=== PATIENT | male | born 1955 | race Caucasian/White ===

== ENCOUNTER 2017-02-04 13:53 | Emergency (ER) | payer OTHER ==
[~2017-02-04] VITALS: Ht 167.6 cm; Wt 83.3 kg
[2017-02-04 14:02] VITALS: TEMP 36.7; Ht 167.6 cm; Wt 83.3 kg
--- NOTE | 2017-02-04 14:33 | DIAGNOSTIC IMAGING REPORT ---
RIGHT WRIST 5 VIEWS HISTORY: R wrist pain Right COMPARISON: None. FINDINGS: Nondisplaced radial styloid fracture. The scaphoid appears intact. Old nonunited fracture at the ulnar styloid. Radial soft tissue swelling. No radiopaque foreign bodies. IMPRESSION: Acute nondisplaced radial styloid fracture. Electronically signed by: Bartolo Powers M.D. 02/04/2017 2:32 PM Dictated Date/Time: 02/04/2017 2:30 PM
--- NOTE | 2017-02-04 14:43 | EMERGENCY ROOM VISIT NOTE ---
History First contact with patient: 14:04 Chief Complaint: WRIST PAIN Stated Complaint: SPRAINED RIGHT WRIST-WORK RELATED INJURY History of Present Illness The patient is a 61 year old male who presents to the Emergency Room with complaints of right wrist pain after he slipped and fell at work this morning. The patient was inspecting a grate, and reports that the slipped on a wet deck and fell forward. He tried to catch his fall with his right upper extremity. He does not recall if he flexed or hyperextended the wrist. He complains of pain along the radial aspect. He denies any pain extending into the hand or forearm. The patient is [id number], and rates his discomfort a 2 out of 10. The patient denies any prior history of right wrist injuries. Review of Systems 10 system review was performed and was negative except for pertinent positives and negatives as indicated in history of present illness Past Medical/Surgical History Medical Problems: (1) Herpes Zoster Nos (2) No significant past surgical history Surgical Problems: (1) S/P herniorrhaphy Family History FH: heart disease Social History Smoking Status: Never Smoker Alcohol Use: none Marital Status: single Housing Status: lives alone Occupation Status: employed Current/Historical Medications No Active Prescriptions or Reported Meds Physical Exam Vital Signs Date Time Temp Pulse Resp B/P (MAP) Pulse Ox O2 Delivery O2 Flow Rate FiO2 02/04/17 14:02 36.7 69 20 158/100 100 Room Air Physical Exam CONSTITUTIONAL: Healthy and well nourished. Alert and oriented X 3 with positive affect. Patient does not appear in any acute distress. HEENT: Normocephalic, atraumatic. Pupils equal, round and reactive. NECK: Full active range of motion without discomfort. MUSCULOSKELETAL: Examination of the right upper extremity does not show any soft tissue edema, ecchymosis, open wounds or deformity. The patient has mild tenderness over the right distal radius region with negative anatomic snuffbox tenderness. No focal tenderness over the distal ulna or ulnar styloid. No worsening pain with pronation or supination. No focal tenderness to palpation through the metacarpals, phalanges or elbow region. Capillary refill is less than 2 seconds. INTEGUMENTARY: No rash or other significant dermatologic conditions noted. NEUROLOGIC: Right hand and fingers are sensory intact. Medical Decision & Procedures ER Provider Diagnostic Interpretation: My interpretation of right wrist x-rays confirms a nondisplaced intra-articular distal radius/radial styloid fracture. Radiologist report is as follows: RIGHT WRIST 5 VIEWS HISTORY: R wrist pain Right COMPARISON: None. FINDINGS: Nondisplaced radial styloid fracture. The scaphoid appears intact. Old nonunited fracture at the ulnar styloid. Radial soft tissue swelling. No radiopaque foreign bodies. IMPRESSION: Acute nondisplaced radial styloid fracture. ED Course Patient history and physical exam were performed. Nurse's notes were reviewed. Vital signs were reviewed, showing an elevated blood pressure 158/100. The patient refused any analgesics. Denies pack was applied. Right wrist x-rays confirms a radial styloid fracture. A volar Ortho-Glass splint was applied. Neurovascular check after splint placement was normal. The patient was encouraged to ice and elevate the wrist for swelling and pain. Ibuprofen or Tylenol if needed for additional pain relief. The patient was instructed to follow-up with his Worker's Compensation approved orthopedic surgeon for further reevaluation and management. The patient was happy with plan of care, voiced understanding of all discharge instructions, and denied any significant pain at the time of discharge. The patient was also instructed to follow-up with his PCP for blood pressure recheck as his pressure was elevated in the emergency department. Medical Decision Blood Pressure Screening Patient's blood pressure: Elevated blood pressure Blood pressure disposition: Referred to PCP Impression Primary Impression: Nondisplaced fracture of right radial styloid process, initial encounter for closed fracture Additional Impressions: Work related injury Elevated blood pressure reading Fall from slipping on slippery surface Departure Information Prescriptions No Active Prescriptions or Reported Meds Referrals Mark Cho, DDeniseODenise (PCP) Patient Instructions [facility] Problem Qualifiers Additional Impressions: Fall from slipping on slippery surface Encounter type: initial encounter Qualified Codes: W01.0XXA - Fall on same level from slipping, tripping and stumbling without subsequent striking against object, initial encounter
[2017-02-04 15:12] VITALS: BP 160/91; PULSE 69; O2SAT 100
== END 2017-02-04 15:13 | disposition home or self-care (01) ==
LOC: C.EDB 14:02 → C.EDD 15:13
DX: S52.514A Nondisplaced fracture of right radial styloid process, initial encounter for closed fracture (principal); W01.0XXA Fall on same level from slipping, tripping and stumbling without subsequent striking against object, initial encounter; Y93.89 Activity, other specified; Y92.89 Other specified places as the place of occurrence of the external cause; Y99.0 Civilian activity done for income or pay; R03.0 Elevated blood-pressure reading, without diagnosis of hypertension